=== PATIENT | female | born 1960 | race Caucasian/White ===

== ENCOUNTER → 2017-12-27 | Outpatient (CLI) | payer OTHER ==
--- NOTE | 2017-12-27 12:03 | MM ---
Reason for exam: screening (asymptomatic). Last mammogram was performed 3 years and 11 months ago. History: Patient is postmenopausal and is nulliparous. Physical Findings: A clinical breast exam by your physician is recommended on an annual basis and results should be correlated with mammographic findings. MG Screening Mammo w CAD Bilateral CC and MLO view(s) were taken. Prior study comparison: January 17, 2014, bilateral MG screening mammo w CAD. January 22, 2012, bilateral digital screening mammo w/CAD. There are scattered fibroglandular densities. There is chronic nodularity bilaterally. Asymmetric breast tissue left upper outer quadrant posteriorly, stable. There is no discrete abnormality. ASSESSMENT: Benign, BI-RAD 2 RECOMMENDATION: Routine screening mammogram of both breasts in 1 year.
== END | disposition home or self-care (01) ==
LOC: RADMAMWWP 09:19
PROVIDERS: ATTEND Family Medicine
DX: Z12.31 Encounter for screening mammogram for malignant neoplasm of breast (principal)
CPT/HCPCS: 77067

== ENCOUNTER → 2020-01-02 | Outpatient (CLI) | payer OTHER ==
[2020-01-02 14:04] LABS: Basophils % (A) 1 %; Eosinophils # (A) 0.2 k/uL (0-0.7); Eosinophils % (A) 3 %; HCT 37.8 % (34.0-46.0); HGB 11.9 gm/dL (11.4-16.0); Lymphocytes # (A) 1.7 k/uL (1.0-4.8); Lymphocytes % (A) 31 %; MCH 28.9 pg (25.0-35.0); MCHC 31.6 g/dL (31.0-37.0); MCV 91.7 fL (80.0-100.0); Mean Platelet Volume 7.2; Monocytes # (A) 0.3 k/uL (0-1.0); Monocytes % (A) 5 %; Neutrophils # (A) 3.3 k/uL (1.3-7.7); Neutrophils % (A) 59 %; Platelet Count 288 k/uL (150-450); RBC 4.12 m/uL (3.80-5.40); RDW 13.5 % (11.5-15.5); WBC 5.5 k/uL (3.8-10.6)
[2020-01-02 20:12] LABS: Urine Creatinine 144.2 mg/dL
[2020-01-03 01:21] LABS: Hemoglobin A1C 5.8 % (4.0-6.0)
[2020-01-03 04:08] LABS: African American GFR (CKD) 92.9 (60.0-200.0); Albumin 4.1 g/dL (3.80-4.90); Albumin/Globulin Ratio 2.16 (1.60-3.17); Anion Gap 10.9 mmol/L (4.00-12.00); BUN/Creat Ratio 22.5 Ratio (12.00-20.00); Calcium 9.2 mg/dL (8.7-10.3); Carbon Dioxide 24.1 mmol/L (21.6-31.8); Chol/HDL Ratio 4.06; Globulin 1.9 g/dL (1.6-3.3); LDL Cholesterol,Calculated 124.2 mg/dL (0.0-131.0); Non-African American GFR(CKD) 80.1 (60.0-200.0); Potassium 4.6 mmol/L (3.5-5.5); Total Bilirubin 0.5 mg/dL (0.2-1.2); VLDL Calculation 19.8 mg/dL (5.00-40.00)
--- NOTE | 2020-01-03 11:06 | MM ---
Reason for exam: screening (asymptomatic). Last mammogram was performed 2 years ago. History: Patient is postmenopausal and is nulliparous. Physical Findings: A clinical breast exam by your physician is recommended on an annual basis and results should be correlated with mammographic findings. MG Screening Mammo w CAD Bilateral CC and MLO view(s) were taken. Prior study comparison: December 27, 2017, bilateral MG screening mammo w CAD. January 17, 2014, bilateral MG screening mammo w CAD. There are scattered fibroglandular densities. There are benign appearing round calcifications bilaterally. There is no discrete abnormality. ASSESSMENT: Benign, BI-RAD 2 RECOMMENDATION: Routine screening mammogram of both breasts in 1 year.
== END | disposition home or self-care (01) ==
LOC: LABWHC1 11:58
PROVIDERS: ATTEND Family Medicine
DX: Z12.31 Encounter for screening mammogram for malignant neoplasm of breast (principal); Z00.00 Encounter for general adult medical examination without abnormal findings; E11.9 Type 2 diabetes mellitus without complications; E78.49 Other hyperlipidemia
CPT/HCPCS: 36415; 77067; 80053; 80061; 82043; 82570; 83036; 85025

== ENCOUNTER 2020-05-02 10:52 | Emergency (ER) | payer OTHER ==
[2020-05-02 11:04] VITALS: RESP 18
[2020-05-02] MEDS ORDERED: KETOROLAC 15 MG/ML 1 ML VIAL IVP STA (11:15)
[2020-05-02] MEDS ORDERED: SODIUM CHLORIDE 0.9% 1,000 ML IV STA (11:15)
[2020-05-02] MEDS ORDERED: ONDANSETRON ODT 8 MG TAB.RAPDIS PO STA (11:15)
--- NOTE | 2020-05-02 11:29 | ED ---
Abdominal Pain HPI - General Chief Complaint: Abdominal Pain Stated Complaint: poss kidney stones Time Seen by Provider: 05/02/20 11:07 Source: patient, family, RN notes reviewed Mode of arrival: wheelchair Limitations: no limitations - History of Present Illness Initial Comments: Patient is a 59-year-old white female presenting to the emergency department with her complaining of right-sided flank pain. She did note that she has a history of kidney stones. She reported that this feels very similar to last time she had kidney stones but reported was on the left side and several. He has past medical history significant for diabetes. She stated that she woke up around 8:00 this morning with right-sided flank pain that she states is a 100 out of 10 on the pain scale and makes her nauseous. She said the pain is constant and unrelenting. She noted that she did not try to take any medication to help improve the pain and changing positions and moving generally make the pain worse. She states she has not had any difficulty urinating since this morning. She appeared to be in mild distress and pain, and discomfort while lying in bed. She noted that she drinks plenty water home and that she has a drug that she has with her at all times. Patient denies any vomiting, constipation, diarrhea, chest pain, shortness of breath, headache, fever, chills, fatigue, and night sweats. - Related Data Home Medications Medication Instructions Recorded Confirmed Atorvastatin [Lipitor] 20 mg PO HS 05/02/20 05/02/20 glipiZIDE [Glucotrol XL] 10 mg PO DAILY 05/02/20 05/02/20 metFORMIN HCL [Glucophage] 500 mg PO BID 05/02/20 05/02/20 Previous Rx's Medication Instructions Recorded Ibuprofen [Motrin] 800 mg PO Q6HR #30 tab 05/02/20 Ondansetron Odt [Zofran Odt] 4 mg PO Q8HR PRN #10 tab 05/02/20 Allergies Allergy/AdvReac Type Severity Reaction Status Date / Time No Known Allergies Allergy Verified 05/02/20 12:15 Review of Systems ROS Statement: Those systems with pertinent positive or pertinent negative responses have been documented in the HPI. ROS Other: All systems not noted in ROS Statement are negative. Past Medical History Past Medical History: Diabetes Mellitus Additional Past Medical History / Comment(s): kidney stones History of Any Multi-Drug Resistant Organisms: None Reported Additional Past Surgical History / Comment(s): right leg fx Past Psychological History: No Psychological Hx Reported Smoking Status: Never smoker Past Alcohol Use History: None Reported Past Drug Use History: None Reported General Exam Limitations: no limitations General appearance: alert, other (Mildly distressed, appeared to be in pain.) Head exam: Present: atraumatic, normocephalic, normal inspection Eye exam: Present: normal appearance, PERRL, EOMI. Absent: scleral icterus, conjunctival injection, periorbital swelling ENT exam: Present: normal exam, mucous membranes moist Neck exam: Present: normal inspection. Absent: tenderness, meningismus, lymphadenopathy Respiratory exam: Present: normal lung sounds bilaterally. Absent: respiratory distress, wheezes, rales, rhonchi, stridor Cardiovascular Exam: Present: regular rate, normal rhythm, normal heart sounds. Absent: systolic murmur, diastolic murmur, rubs, gallop, clicks GI/Abdominal exam: Present: soft, normal bowel sounds. Absent: distended, tenderness, guarding, rebound, rigid Extremities exam: Present: normal inspection, full ROM, normal capillary refill. Absent: tenderness, pedal edema, joint swelling, calf tenderness Back exam: Present: normal inspection, full ROM, CVA tenderness (R) Neurological exam: Present: alert, oriented X3, CN II-XII intact Psychiatric exam: Present: normal affect, normal mood Skin exam: Present: warm, dry, intact, normal color. Absent: rash Course Vital Signs 05/02/20 10:57 Temperature 97.7 F Pulse Rate 53 L Respiratory 18 Rate Blood Pressure 143/76 O2 Sat by Pulse 100 Oximetry Medical Decision Making - Medical Decision Making 59-year-old female complaining of right-sided flank pain with history of kidney stones. Labs and imaging ordered: Imaging came back positive for kidney stones. Labs were grossly normal: This slightly elevated BUN Case discussed with Dr. Calvillo. It was decided that it was safe for patient discharged home - Lab Data Result diagrams: 05/02/20 11:39 05/02/20 11:39 Lab Results 05/02/20 05/02/20 Range/Units 11:39 11:39 WBC 10.7 H (3.8-10.6) k/uL RBC 4.23 (3.80-5.40) m/uL Hgb 13.1 (11.4-16.0) gm/dL Hct 38.5 (34.0-46.0) % MCV 91.0 (80.0-100.0) fL MCH 31.0 (25.0-35.0) pg MCHC 34.1 (31.0-37.0) g/dL RDW 13.3 (11.5-15.5) % Plt Count 274 (150-450) k/uL MPV 7.1 Neutrophils % 86 % Lymphocytes % 9 % Monocytes % 3 % Eosinophils % 1 % Basophils % 0 % Neutrophils # 9.2 H (1.3-7.7) k/uL Lymphocytes # 1.0 (1.0-4.8) k/uL Monocytes # 0.4 (0-1.0) k/uL Eosinophils # 0.1 (0-0.7) k/uL Basophils # 0.0 (0-0.2) k/uL Sodium 139 (137-145) mmol/L Potassium 4.6 (3.5-5.1) mmol/L Chloride 106 (98-107) mmol/L Carbon Dioxide 26 (22-30) mmol/L Anion Gap 7 mmol/L BUN 22 H (7-17) mg/dL Creatinine 0.87 (0.52-1.04) mg/dL Est GFR (CKD-EPI)AfAm 84 (>60 ml/min/1.73 sqM) Est GFR (CKD-EPI)NonAf 73 (>60 ml/min/1.73 sqM) Glucose 176 H (74-99) mg/dL Calcium 9.4 (8.4-10.2) mg/dL Total Bilirubin 0.5 (0.2-1.3) mg/dL AST 24 (14-36) U/L ALT 17 (4-34) U/L Alkaline Phosphatase 80 (38-126) U/L Total Protein 6.9 (6.3-8.2) g/dL Albumin 4.0 (3.5-5.0) g/dL Amylase 43 (30-110) U/L Lipase 72 (23-300) U/L - Radiology Data Radiology results: report reviewed, image reviewed CT: Obstructing 0.7 cm transverse dimension mid right ureteral stone with moderate right hydronephrosis and hydroureter. Nonobstructing additional renal stones bilaterally. Mild thickening of the left adrenal gland. X-ray: 10 x 5 mm calcification right mid abdomen could be located within the upper to mid right ureter. Disposition Clinical Impression: Nephrolithiasis, Hydronephrosis, Hydroureter Disposition: HOME SELF-CARE Condition: Stable Instructions (If sedation given, give patient instructions): Kidney Stones (ED), Flank Pain (ED) Additional Instructions: Please return to the Emergency Department if symptoms worsen or any other concerns. Drink plenty of fluids. Take medication as prescribed Follow-up primary care in 1-2 days Prescriptions: Ibuprofen [Motrin] 800 mg PO Q6HR #30 tab Ondansetron Odt [Zofran Odt] 4 mg PO Q8HR PRN #10 tab PRN Reason: Nausea Is patient prescribed a controlled substance at d/c from ED?: No Referrals: Justino Vazquez MD [Primary Care Provider] - 1-2 days Time of Disposition: 13:28
[2020-05-02 12:02] LABS: Basophils % (A) 0 %; Eosinophils # (A) 0.1 k/uL (0-0.7); Eosinophils % (A) 1 %; HCT 38.5 % (34.0-46.0); HGB 13.1 gm/dL (11.4-16.0); Lymphocytes % (A) 9 %; MCHC 34.1 g/dL (31.0-37.0); Mean Platelet Volume 7.1; Monocytes # (A) 0.4 k/uL (0-1.0); Monocytes % (A) 3 %; Neutrophils # (A) 9.2 k/uL (1.3-7.7); Neutrophils % (A) 86 %; Platelet Count 274 k/uL (150-450); RBC 4.23 m/uL (3.80-5.40); RDW 13.3 % (11.5-15.5); WBC 10.7 k/uL (3.8-10.6)
[2020-05-02 12:24] LABS: Calcium 9.4 mg/dL (8.4-10.2); Potassium 4.6 mmol/L (3.5-5.1); Total Bilirubin 0.5 mg/dL (0.2-1.3); Total Protein 6.9 g/dL (6.3-8.2)
--- NOTE | 2020-05-02 12:34 | XR ---
EXAMINATION TYPE: XR KUB DATE OF EXAM: 05/02/2020 Comparison: 05/28/2009 Clinical History: 59-year-old female abdominal pain Findings: 10 x 5 mm calcification right paramedian mid abdomen. Nonobstructive bowel gas pattern. Mild stool bu rden. Impression: 10 x 5 mm calcification right mid abdomen could be located within the upper to mid right ureter. Gabriel elate for any renal colic symptoms.
--- NOTE | 2020-05-02 13:12 | CT ---
EXAMINATION TYPE: CT abdomen pelvis wo con DATE OF EXAM: 05/02/2020 COMPARISON: None INDICATION: Rt flank pain, history of stones DLP: 754.5 mGycm, Automated exposure control for dose reduction was used. CONTRAST: 0 mL of Isovue 300. Study performed without Oral Contrast TECHNIQUE: Axial images were obtained from above the diaphragm to the pubic rami in the axial plane a t 5 mm thick sections. Reconstructed images are reviewed on the computer in the coronal plane. FINDINGS: Limited CT sections are obtained the lung bases. The lung bases are clear. CT ABDOMEN: Liver: Normal Spleen: Normal Pancreas: Normal Adrenal glands: Left adrenal appears somewhat lobular thickening 1.3 cm. Right adrenal gland is unrem arkable. Gallbladder: Normal Kidneys: No masses are evident. There is a moderate right hydronephrosis. An obstructing 0.7 cm mid r ight ureteral stone is evident. Series 201 image 73. A nonobstructing inferior pole right renal stone is present. Punctate calcifications in the posterior lateral right mid kidney. No suspicious left re nal stones are evident. Punctate calcification may be at the inferior pole left kidney. No left hydro nephrosis or hydroureter is evident. No cysts are present. Aorta: Normal Inferior vena cava: Normal. CT PELVIS: Loops of bowel within the abdomen and pelvis are normal. The study is without oral contrast limit ing bowel evaluation. A few diverticular changes are evident within the sigmoid colon. Appendix: Not visualized. No suspicious dilated tubular structure or inflammatory changes evident. Urinary bladder: Normal. Genitourinary structures: Prostate is unremarkable Osseous structures: No suspicious lytic or sclerotic lesions. IMPRESSIONS: 1. Obstructing 0.7 cm transverse dimension mid right ureteral stone with moderate right hydronephros is and hydroureter. 2. Nonobstructing additional renal stones bilaterally. 3. Mild thickening of the left adrenal gland
[2020-05-02 13:53] VITALS: BP 152/86; PULSE 84; TEMP 98.7
== END 2020-05-02 13:53 | disposition home or self-care (01) ==
LOC: EC 10:52
DX: N13.2 Hydronephrosis with renal and ureteral calculous obstruction (principal); R79.89 Other specified abnormal findings of blood chemistry; E11.9 Type 2 diabetes mellitus without complications; Z79.84 Long term (current) use of oral hypoglycemic drugs
CPT/HCPCS: 80053; 82150; 83690; 85025; 74018; 74176; 96374; 96361 ×2; 99284; J1885

== ENCOUNTER → 2021-11-13 | Outpatient (CLI) | payer OTHER ==
--- NOTE | 2021-11-14 15:50 | MM ---
Reason for Exam: Screening (asymptomatic). Last mammogram was performed 1 year(s) and 11 month(s) ago. Patient History: Menarche at age 10. Patient has no children. Postmenopausal. Risk Values: Lakesha 5 year model risk: 1.8%. NCI Lifetime model risk: 8.6%. Prior Study Comparison: 01/17/2014 Bilateral Screening Mammogram, [facility]. 12/27/2017 Bilateral Screening Mammogram, [facility]. 01/02/2020 Bilateral Screening Mammogram, [facility]. Tissue Density: There are scattered fibroglandular densities. Findings: Analyzed By CAD. Parenchymal pattern appears stable. No suspicious groups of microcalcifications, spiculated or lobular masses, architectural distortion or other secondary signs of malignancy are mammographically apparent. Overall Assessment: Benign, BI-RAD 2 Management: Screening Mammogram of both breasts in 1 year. A negative mammogram report should not preclude additional follow up of suspicious palpable abnormalities. Patient should continue monthly self breast exam. A clinical breast exam by your physician is recommended on an annual basis and results should be correlated with mammographic findings. Electronically signed and approved by: Diego Carver D.O. Radiologis
== END | disposition home or self-care (01) ==
LOC: RADMAMWWP 16:32
PROVIDERS: ATTEND Family Medicine
DX: Z12.31 Encounter for screening mammogram for malignant neoplasm of breast (principal); Z78.0 Asymptomatic menopausal state
CPT/HCPCS: 77067

== ENCOUNTER 2023-10-19 06:37 | Day surgery (SDC) | payer OTHER ==
[~2023-10-19 06:37] MED LIST: LACTATED RINGERS 1,000 ML IV SCH; LIDOCAINE 1% (10MG/ML) FOR IV START INTRADERMA PRN
[2023-10-19] MEDS: IV FLUID CONTINUATION 1,000 ML IV ONE (06:52)
[2023-10-19 07:02] VITALS: TEMP 98.1
[2023-10-19 07:14] LABS: Glucose,Whole Blood 90 mg/dL (70-110)
[2023-10-19] MEDS ORDERED: PROPOFOL 10 MG/ML 20 ML VIAL IV ONE (08:16)
[2023-10-19] MEDS: LACTATED RINGERS 1,000 ML IV ONE (08:29)
--- NOTE | 2023-10-19 08:29 | P.PCN ---
Date of Procedure: 10/19/23 Procedure(s) Performed: BRIEF HISTORY: Patient is a 62-year-old pleasant white female scheduled for an elective colonoscopy as a part of colon cancer. PROCEDURE PERFORMED: Colonoscopy. PREOPERATIVE DIAGNOSIS: Screening for colon cancer. IV sedation per Anesthesia. PROCEDURE: After informed consent was obtained, the patient, was brought into the endoscopy unit. IV sedation was administered by Anesthesia under continuous monitoring. Digital rectal examination was normal. Initially the Olympus CF-160 flexible video colonoscope was then inserted in the rectum, gradually advanced into the cecum without any difficulty. Careful examination was performed as the scope was gradually being withdrawn. Ileocecal valve and the appendiceal orifice were visualized and appeared normal. Prep was excellent. Mucosa of the cecum, ascending colon, transverse colon, descending colon, sigmoid colon, and rectum appeared normal. Scattered sigmoid diverticulosis retroflexion was performed in the rectum and no lesions were seen. The patient tolerated the procedure well. IMPRESSION: Normal-appearing colon from rectum to cecum with no evidence of colorectal neoplasia. Sigmoid diverticulosis. RECOMMENDATIONS: Findings of this examination were discussed with the patient as well as her family. She was advised to have repeat screening colonoscopy in 10 years for.
[2023-10-19 08:54] VITALS: BP 136/75; PULSE 66; RESP 17
== END 2023-10-19 08:58 | disposition home or self-care (01) ==
LOC: ORWHC2ENDO 06:37
PROVIDERS: ATTEND Internal Medicine Gastroenterology
DX: Z12.11 Encounter for screening for malignant neoplasm of colon (principal); K57.30 Diverticulosis of large intestine without perforation or abscess without bleeding; E11.9 Type 2 diabetes mellitus without complications; M19.90 Unspecified osteoarthritis, unspecified site; M06.9 Rheumatoid arthritis, unspecified; Z79.84 Long term (current) use of oral hypoglycemic drugs; Z87.442 Personal history of urinary calculi; Z79.899 Other long term (current) drug therapy
CPT/HCPCS: 45378; J2704

== ENCOUNTER → 2024-02-22 | Outpatient (CLI) | payer OTHER ==
--- NOTE | 2024-02-23 09:58 | MM ---
Reason for Exam: Screening (asymptomatic). Last mammogram was performed 2 year(s) and 3 month(s) ago. Patient History: Menarche at age 10. Patient has no children. Postmenopausal. Risk Values: Lakesha 5 year model risk: 2.0%. NCI Lifetime model risk: 7.9%. Prior Study Comparison: 12/27/2017 Bilateral Screening Mammogram, [facility]. 01/02/2020 Bilateral Screening Mammogram, [facility]. 11/13/2021 Bilateral MG screening mammo w CAD, [facility]. Tissue Density: The breasts are heterogeneously dense, which may obscure small masses. Findings: Analyzed By CAD. There is no suspicious group of microcalcifications. Asymmetric density upper left MLO view. Additional views are recommended. Overall Assessment: Incomplete: need additional imaging evaluation, BI-RAD 0 Management: Diagnostic Mammogram of the left breast. . Patient should continue monthly self-breast exams. A clinical breast exam by your physician is recommended on an annual basis. This exam should not preclude additional follow-up of suspicious palpable abnormalities. Note on Lakesha scores and lifetime risk: 1. A Lakesha score greater than 3% is considered moderate risk. If this is the case, consider specialist referral to assess eligibility for a risk reducing agent. 2. If overall lifetime risk for the development of breast cancer is 20% or higher, the patient may qualify for future screening with alternating mammogram and breast MRI. [facility], , 02/23/2024 9:55 AM. Electronically signed and approved by: Matthew Guerra M.D. Radiologis
== END | disposition home or self-care (01) ==
LOC: RADMAMWWP 12:31
PROVIDERS: ATTEND Family Medicine
DX: Z12.31 Encounter for screening mammogram for malignant neoplasm of breast (principal); Z78.0 Asymptomatic menopausal state; R92.333 Mammographic heterogeneous density, bilateral breasts
CPT/HCPCS: 77067

== ENCOUNTER → 2024-02-29 | Outpatient (CLI) | payer OTHER ==
[2024-02-29 15:13] LABS: ALT 21 U/L (8-44); Blood Urea Nitrogen 20.5 mg/dL (9.0-27.0)
[2024-02-29 15:14] LABS: AST 28 U/L (13-35)
[2024-02-29 16:42] LABS: Basophils # (A) 0.07 X 10*3/uL (0.00-0.10); Basophils % (A) 1.3 %; Eosinophils # (A) 0.12 X 10*3/uL (0.04-0.35); Eosinophils % (A) 2.2 %; HCT 37.2 % (37.2-46.3); HGB 11.9 g/dL (12.0-15.0); Lymphocytes # (A) 1.61 X 10*3/uL (0.90-5.00); Lymphocytes % (A) 29.8 %; MCH 30.2 pg (27.0-32.0); MCV 94.4 FL (80.0-97.0); Mean Platelet Volume 10.3 FL (9.5-12.2); Monocytes # (A) 0.44 X 10*3/uL (0.20-1.00); Monocytes % (A) 8.1 %; NRBC Per 100 WBC 0 X 10*3/uL (0.00-0.01); Neutrophils # (A) 3.16 X 10*3/uL (1.80-7.70); Neutrophils % (A) 58.4 %; Platelet Count 261 X 10*3/uL (140-440); RBC 3.94 X 10*6/uL (4.10-5.20); RDW 12.6 % (11.5-14.5); WBC 5.41 X 10*3/uL (4.50-10.00)
== END | disposition home or self-care (01) ==
LOC: LABWHC1 09:30
PROVIDERS: ATTEND Internal Medicine
DX: Z51.81 Encounter for therapeutic drug level monitoring (principal)
CPT/HCPCS: 36415; 82565; 84450; 84460; 84520; 85025

== ENCOUNTER → 2024-03-01 | Outpatient (CLI) | payer OTHER ==
--- NOTE | 2024-03-01 09:40 | MM ---
Reason for Exam: Additional evaluation requested from abnormal screening. Last screening mammogram was performed less than 1 month ago. Patient History: Menarche at age 10. Patient has no children. Postmenopausal. Risk Values: Lakesha 5 year model risk: 2.0%. NCI Lifetime model risk: 7.9%. Prior Study Comparison: 01/17/2014 Bilateral Screening Mammogram, [facility]. 12/27/2017 Bilateral Screening Mammogram, [facility]. 01/02/2020 Bilateral Screening Mammogram, [facility]. 11/13/2021 Bilateral MG screening mammo w CAD, [facility]. 02/22/2024 Bilateral MG screening mammo w CAD, [facility]. Tissue Density: Left: There are scattered areas of fibroglandular density. Findings: Analyzed By CAD. Areas of asymmetric density on both the CC and MLO view do not show any persisting mass on additional spot 3-D views. On MLO, the appearance is similar to older priors. Findings compatible with superimposition shadow. Overall Assessment: Benign, BI-RAD 2 Management: Screening Mammogram of both breasts in 1 year. Results were given to the patient verbally at the time of exam. Patient should continue monthly self-breast exams. A clinical breast exam by your physician is recommended on an annual basis. This exam should not preclude additional follow-up of suspicious palpable abnormalities. Note on Lakesha scores and lifetime risk: 1. A Lakesha score greater than 3% is considered moderate risk. If this is the case, consider specialist referral to assess eligibility for a risk reducing agent. 2. If overall lifetime risk for the development of breast cancer is 20% or higher, the patient may qualify for future screening with alternating mammogram and breast MRI. [facility], , 03/01/2024 9:37 AM. Electronically signed and approved by: Mariam Mohan M.D. Radiologist
== END | disposition home or self-care (01) ==
LOC: RADMAMWWP 08:30
DX: R92.8 Other abnormal and inconclusive findings on diagnostic imaging of breast (principal); Z78.0 Asymptomatic menopausal state; R92.322 Mammographic fibroglandular density, left breast
CPT/HCPCS: 77061; 77065